=== PATIENT | female | born 1960 | race Caucasian/White ===

== ENCOUNTER 2023-05-23 23:44 | Emergency (ER) | payer BC ==
[~2023-05-23] VITALS: Ht 162.6 cm; Wt 53.2 kg
[2023-05-24] MEDS ORDERED: ASPIRIN 81MG CHEW TABLET PO ONE (00:15)
[2023-05-24 00:40] LABS: BASO % 0.3 % (0.0-1.0); EOS # 0.1 10^3/uL (0.0-0.5); EOS % 0.9 % (0.0-3.0); HEMATOCRIT 35.1 % (36.0-47.0); HEMOGLOBIN 12.4 g/dl (12.0-15.5); LYMPH # 1.4 10^3/uL (1.5-5.0); LYMPH % 21.2 % (24.0-44.0); MEAN CORPUSCULAR HEMOGLOBIN 30.7 pg (27.0-33.0); MEAN CORPUSCULAR HGB CONC 35.3 g/dl (32.0-36.5); MEAN CORPUSCULAR VOLUME 86.9 fl (80.0-96.0); MONO # 0.6 10^3/uL (0.0-0.8); MONO % 8.8 % (2.0-8.0); NEUTROPHILS # 4.5 10^3/uL (1.5-8.5); NEUTROPHILS % 67.9 % (36.0-66.0); PLATELET COUNT, AUTOMATED 169 10^3/uL (150-450); RED BLOOD COUNT 4.04 10^6/uL (4.00-5.40); WHITE BLOOD COUNT 6.7 10^3/uL (4.0-10.0)
[2023-05-24 00:51] LABS: CK-MB VALUE MASS 1.6 NG/ML (<3.6)
[2023-05-24 00:53] LABS: BLOOD UREA NITROGEN 6 MG/DL (9-23); CALCIUM LEVEL 8.5 MG/DL (8.3-10.6); CARBON DIOXIDE LEVEL 26 MMOL/L (20-31); CHLORIDE LEVEL 91 MMOL/L (98-107); CPK CREATINE PHOSPHOKINASE 104 U/L (34-145); CREATININE FOR GFR 0.65 MG/DL (0.55-1.30); GLOMERULAR FILTRATION RATE > 60.0 (>45); GLUCOSE, FASTING 111 MG/DL (74-106); MB/CK RELATIVE INDEX 1.53 (< OR =4); POTASSIUM SERUM 3.9 MMOL/L (3.5-5.1); SODIUM LEVEL 124 MMOL/L (136-145)
[2023-05-24 01:39] LABS: CK-MB VALUE MASS 1.4 NG/ML (<3.6)
[2023-05-24 01:40] LABS: MB/CK RELATIVE INDEX 1.59 (< OR =4)
[2023-05-24 02:12] LABS: CREATININE,RANDOM URINE 17.6 MG/DL
[2023-05-24 02:15] LABS: THYROID STIMULATING HORMONE 1.985 uIU/ML (0.55-4.78)
[2023-05-24 02:16] LABS: FREE T4 1.18 NG/DL (0.89-1.76)
[2023-05-24] MEDS ORDERED: NS 1,000 ML IV ONE (02:35)
[2023-05-24 04:17] LABS: OSMOLALITY URINE 71 MOSM/KG (50-1400)
[2023-05-24 04:59] LABS: SODIUM,RANDOM URINE 15 MMOL/L
[2023-05-24 05:18] VITALS: BP 140/76; TEMP 98.6; O2SAT 98
== END 2023-05-24 05:20 | disposition home or self-care (01) ==
LOC: M ED 23:44
DX: R07.9 Chest pain, unspecified (principal); E87.1 Hypo-osmolality and hyponatremia; Z87.891 Personal history of nicotine dependence